=== PATIENT | female | born 1995 | race Caucasian/White ===

== ENCOUNTER → 2021-01-31 10:05 | Outpatient (CLI) | payer OTHER, SELFPAY ==
[2021-01-31 11:03] LABS: COVID19 -Nasal RAPID Negative (Negative)
== END ==
PROVIDERS: Visit Provider Physician Assistant
DX: Z20.822 Contact with and (suspected) exposure to COVID-19 (principal); Z01.812 Encounter for preprocedural laboratory examination
CPT/HCPCS: 87635

== ENCOUNTER 2021-02-02 06:13 | Day surgery (SDC) | payer OTHER, SELFPAY ==
[2021-02-02] VITALS (12 sets, daily range): BP systolic 95–129; BP diastolic 52–80; PULSE 72–98; RESP 8–21; TEMP 36.1–37.6; O2SAT 97–100; BMI 18.1
--- NOTE | 2021-02-02 | DI.RAD.S_ITS ---
PROCEDURE: XR ANKLE LT MIN 3V INDICATIONS: FLAT FOOT REPAIR TECHNIQUE: 3 views of the ankle were acquired. COMPARISON: None. FINDINGS: Bones: Intraoperative images obtained using C-arm apparatus demonstrate postsurgical changes compatible with hindfoot arthrodesis. Soft tissues: No tibiotalar joint effusion. Achilles tendon appears normal. IMPRESSION: Expected postsurgical change for hindfoot arthrodesis. Dictated by: Ariella Taylor MD, PhD on 02/02/2021 at 16:47 Approved by: Ariella Taylor MD, PhD on 02/02/2021 at 16:48
[2021-02-02] MEDS: LACTATED RINGERS 1,000 ML 42 ML IV ×2 (07:23→11:39)
--- NOTE | 2021-02-02 07:29 | PM.PREOP ---
Pre-operative Note COVID-19 COVID-19 status: Negative Interval Note History & Physical reviewed/Exam performed by Physician: Yes Changes to H&P: No
[2021-02-02] MEDS: MIDAZOLAM 2 MG/2 ML VIAL IV (07:39)
[2021-02-02] MEDS: CLINDAMYCIN 900 MG/50 ML PIGGYBACK 50 MG IV (07:48)
--- NOTE | 2021-02-02 07:51 | SUR.PREOP ---
Block start time [0739] . Monitoring initiated and maintained throughout procedure. Oxygen and medications given per anesthesiologist instructions. Patient remained stable throughout procedure, no adverse reactions noted. Block end time [0745].
--- NOTE | 2021-02-02 08:06 | PM.PROC.1 ---
Procedures Date/Time Date of procedure: 02/02/21 Time of procedure: 07:45 Nerve Block Time out performed: Yes Local anesthetic used: other (5mL 1% Lidocaine, 15mL 0.5% Ropivacaine) Location of anesthetic used: lateral popliteal Amount of anesthesia used (mL): 20 Nerve blocks: other (sciatic nerve) Procedure successful: Yes Patient tolerated procedure: well Complications: none Additional comments: LEFT Ultrasound guided lateral popliteal sciatic nerve block for post operative pain management, as discussed with surgeon. Risks, benefits discussed with patient. Consent verified. Site marked by surgeon. Time out performed. Standard ASA monitors applied, NC O2, 2mg versed. Pt supine. Chloroprep. Sciatic nerve identified proximal to popliteal fossa, at bifurcation. Lidocaine local skin wheal. 100mm x 21g Pajunk needle advanced with in-plane US guidance to nerve. Negative aspiration. 5mL 1% lidocaine and 15mL 0.5% ropivacaine injected with intermittent negative aspiration. Good LA spread noted on US. No pain, no paresthesias. VSS. Tolerated well.
[2021-02-02] MEDS: ACETAMINOPHEN IV 1,000 MG/100 ML VIAL 400 MG IV (08:13)
--- NOTE | 2021-02-02 08:25 | SUR.OPER ---
Supine on padded OR bed, head on pillow, arms secured on padded arm boards at <90 degrees abduction, bump under left hip, legs uncrossed, left leg under control of surgeon, safety belt at abdomen, tape over blanket over right lower leg.
[2021-02-02] MEDS: BUPIVACAINE 0.5% W/ EPI (PF) 30 ML VIAL INJ (08:39)
[2021-02-02] MEDS: THROMBIN (RECOMBINANT) 5,000 UNIT VIAL 5000 UNIT TOP (10:31)
[2021-02-02] MEDS: HYDROMORPHONE 2 MG INJ IV ×2 (12:42→12:52)
[2021-02-02] MEDS: OXYCODONE IR 5 MG TABLET PO (12:46)
--- NOTE | 2021-02-02 17:09 | P.OP_ITS ---
Operative Date/Time/Diagnoses Date of procedure: 02/02/21 Time of procedure: 08:00 Pre-op diagnosis: left pes planus, history of clubfoot correction, arthritis of the foot, pes planovalgus, rigid, left, Achilles tendon contracture, a hallux valgus deformity Post-op diagnosis: same Procedure & Clinicians Procedure: triple arthrodesis CPT code 61724 left calcaneus osteotomy CPT code 20369 tendo-Achilles lengthening CPT code 18593 left bone graft small iliac crest dowel CPT code 99628 peroneal tendon release CPT code 10934 Same procedure as scheduled: Yes Indications: Keri is a 25-year-old female with a history of clubfoot deformities bilaterally. She had surgical corrections of her clubfoot when she was 3-year-old involving a circumferential release type surgeries and resulted in a over correction. The patient currently has bilateral painful severe has planovalgus deformities accompanied by hallux valgus deformities with under Lapping great toes. She is on able to ambulate without pain. She has difficulty with shoe wear and walking any distance. She has been indicated for deformity correction. We discussed regarding the severity of her correction this may require staged procedures addressing the hindfoot and forefoot. We also discussed with her severe deformities and history of congenital deformities that residual deformity and stiffness is common. The risks and benefits of the procedure have been discussed with the patient even opportunity to ask questions. The risks of surgery include but are not limited to infection, under correction, over correction, malunion, nonunion, persistence of pain, damage to nerves and blood vessels, posttraumatic arthritis, DVT, PE, cardiopulmonary complications and . we discussed need for additional procedures were staged procedures and the use of autograft and allograft bone. The patient expressed a thorough understanding of the risks and benefits of surgery and has elected to proceed. Consent was signed in the office. Surgeon: Tali Calhoun Network Technical Analyst: Raul Robertson Anesthesia Type: General and Peripheral nerve block Operative Notes Findings: severe rigid pes planovalgus deformity Closure Type: primary Specimen(s): none sent Prosthetic devices, grafts, tissues, transplants, or devices: Arthrex 6.7 cannulated screws x2 Arthrex 4.5 mm cannulated screws x2 Arthrex peanut plate x1 with 1 locking and 1 cortical screw Arthrex Kennedy allograft 12 mm Estimated Blood Loss (mL): 50 Blood products transfused: none Tourniquet time (min): 130 Procedure in detail: Patient was seen in the preoperative area the site of surgery was marked informed consent confirmed. She was brought back to the operating room by the anesthesia team. A peripheral nerve block was placed for postoperative pain control by the anesthesia team. She is physically supine on the operative table all bony prominences were well padded. An SCD was placed. Well-padded thigh tourniquet was placed. The left lower extremities prepped and draped in standard sterile technique. A formal time-out procedure was performed confirming the patient's side and site of surgery administration of appropriate preoperative antibiotics all were in agreement. Implants were in the room. Attention turned to the leg the Esmarch bandage was used for exsanguination and tourniquet elevated to 250 mm of mercury. C-arm was brought in a AP x-rays ankle was obtained showed symmetric mortise and no varus or valgus tilt. The previous and medial and lateral arms of the circumferential release incisions were identified. Achilles lengthening: The patient had the Achilles contracture. A tendo- Achilles lengthening was performed through a triple [place] us to dial in tenotomy with 3 lani sections to the most distal and most proximal directed laterally and the central lani section directed medially the ankle was less stretched in dorsiflexion providing a audible stretch and release. Attention was then turned to the previous medial incision this was opened from the tip of the toes medial malleolus to the navicular in a line with the posterior tibialis tendon. This was taken down the skin subcutaneous tissues. There was copious scar tissue. The posterior tibialis tendon was released around the navicular the talonavicular joint was exposed and mobilized. The cartilage surfaces were removed using the osteotomes and sent these joint prep set. The medial facet of the subtalar joint was also entered from the medial approach. The rigid valgus hindfoot deformity was not current completely yevgeniy ectable of through this so attention was turned laterally and the previous lateral arm of the incision was opened up from the tip of the fibula towards the 4th ray there were chronically dislocated peroneal tendons that were extremely tendinotic and scarred in a contracted position. These were released exposing the sinus tarsi. The remainder of the subtalar joint and posterior facet were exposed and debrided of cartilage. The FHL was of visualized medially. Once this was completed the joint prep was completed with irrigation followed by drilling of the subchondral bone for good bleeding. Attention was turned to the Chopart joint. Decision was made to complete a lateral column lengthening osteotomy through the calcaneus to help address the continued abduction deformity. Of for some increased healing potential of versus a distraction calcaneal cuboid fusion. Calcaneal osteotomy was was completed through the lateral calcaneus about a cm and half proximal to the cc joint. The cc joint was pinned in place and the saw was used to make the osteotomy and the trials and spreaders used to distract this and a 12 mm Arthrex Kennedy wedge was placed and this was secured with a lateral plate. Triple arthrodesis. The subtalar joint was then brought out of valgus and pinned from the calcaneus into the talus improving the alignment to approximate physiologic valgus of 5? on axial imaging. Parallel wires were placed. These were evaluated in lateral and AP ankle imaging making sure the wires were appropriately placed. These were measured drilled and then countersunk and 2 of the 6.7 cannulated screws from the Arthrex set were placed achieving compression. Next attention was turned to the talonavicular joint again this was prepped in the same fashion denuding the cartilage side using the subchondral drilling and placing the mixture of allograft bone with the iliac crest aspirate and iliac crest dowel. Once the talonavicular joint was aligned this was pinned in place and then 2 of the 4.5 cannulated screws from the Arthrex set were placed and a additional dorsal medial a peanut plate for additional dorsal compression. Iliac bone graft: the iliac crest to was prepped out in the initial prep procedure using a thyroid sheet and Ioban. The iliac crest was palpated small incision was made with a scalpel the jam she had the trocar was then advanced into the bone using a mallet trocar was removed and approximately 10 cc of iliac crest aspirate was aspirated in small a 2 cc aliquots from multiple locations and additional at the dowel graft was harvested. This was mixed with the 15 cc of cancellous chips for the fusion sites. Final x-rays of implanted hardware were obtained confirming appropriate joint compression and alignment. Decision was made to address the remaining of forefoot deformity at the additional setting given the need for extensive and multiple releases and procedures due to the complex and chronic congenital deformity. At this point the wounds were irrigated the tourniquet had been released hemostasis was achieved. Deep medial deltoid was reclosed with 0 Vicryl suture. 2-0 Vicryl used in the subcutaneous tissues and 4-0 Monocryl and 4-0 nylon in the skin. The incision for the calcaneal screws was closed with 3- 0 nylon. Single nylon stitch was placed at the iliac crest harvest site. Sterile dressing with Webril Xeroform gauze bulky Nair cotton and a posterior and U splint was placed. The patient was woken from anesthesia and taken to the recovery unit in good condition. There no immediate complications from this procedure. All counts were correct. Complications: none Post-operative Condition: stable Disposition: PACU Plan for aftercare: nonweightbearing left lower extremity follow-up in 2 weeks. Will plan 2nd stage of procedure 4-6 weeks. Oxycodone for pain control. Elevate above the heart level.
== END 2021-02-02 14:25 | disposition home or self-care (01) ==
PROVIDERS: PCP Student in an Organized Health Care Education/Training Program; Referring Provider Orthopaedic Surgery Foot and Ankle Surgery; Visit Provider Orthopaedic Surgery Foot and Ankle Surgery
PROC: (CPT 27870; principal; 2021-02-02 07:45)
PROC: (CPT 27685; 2021-02-02 07:45)
PROC: 0QBP0ZZ Excision of Left Metatarsal, Open Approach (ICD-10-PCS; CPT 28292; 2021-02-02 07:45)
DX: M21.41 Flat foot [pes planus] (acquired), right foot (principal); Z87.76 Personal history of (corrected) congenital malformations of integument, limbs and musculoskeletal system; M19.072 Primary osteoarthritis, left ankle and foot; M20.11 Hallux valgus (acquired), right foot; J45.909 Unspecified asthma, uncomplicated
CPT/HCPCS: 28715; 20900; 27685; 64450; 73610; 76000; J0131; J1100; J1170; J2250; J2405; J2704; J3010

== ENCOUNTER → 2021-03-07 11:08 | Outpatient (CLI) | payer OTHER, SELFPAY ==
[2021-03-07 13:46] LABS: COVID19 -Nasal RAPID Negative (Negative)
== END ==
PROVIDERS: Family Provider Orthopaedic Surgery; PCP Student in an Organized Health Care Education/Training Program; Visit Provider Student in an Organized Health Care Education/Training Program
DX: Z20.822 Contact with and (suspected) exposure to COVID-19 (principal)
CPT/HCPCS: 87635

== ENCOUNTER 2021-03-09 05:52 | Day surgery (SDC) | payer OTHER, SELFPAY ==
[2021-03-09] VITALS (7 sets, daily range): BP systolic 96–115; BP diastolic 62–75; PULSE 68–90; RESP 10–12; TEMP 36.2–37.2; O2SAT 99–100; BMI 18.1
[2021-03-09] MEDS: LACTATED RINGERS 1,000 ML 42 ML IV (07:19)
[2021-03-09] MEDS: ACETAMINOPHEN 325 MG TABLET 975 MG PO (07:30)
--- NOTE | 2021-03-09 07:37 | P.OP_ITS ---
Operative Date/Time/Diagnoses Date of procedure: 03/09/21 Time of procedure: 08:00 Pre-op diagnosis: History of clubfoot correction, pes planus, acquired pes planovalgus and hallux valgus deformities left foot Post-op diagnosis: same Procedure & Clinicians Procedure: arthrodesis tarsometatarsal single, left CPT code 17234 bunionectomy modified Linaers, left CPT code 77651-59 This procedures performed with a modifier 58 for more extensive procedure as part of the staged correction of the severe rigid pes Underwood valgus foot with the severe hallux valgus as part of an overcorrected clubfoot deformity. During the operation, the services of a physician surgical brace maker were medically indicated and necessary to provide the exposure of the operative site for the surgical procedure and to maintain the limb in a proper position to carry out the operation safely and efficiently. Without a qualified refinery operator assistant being present this would extended the operative procedure and made the procedure technically more difficult to perform. Same procedure as scheduled: Yes Indications: The patient is a 25-year-old female with a history of a clubfoot deformities that she had surgical corrections as a child resulting in over correction rigid pes planovalgus deformities with severe hallux valgus deformities and under Lapping great toes. She has been indicated for operative treatment. This is the 2nd stage of the correction. A for staged address the hindfoot. We are addressing the forefoot today with the Lapidus procedure and distal soft tissue release to correct the hallux valgus. The risks and benefits of the procedure have been discussed with the patient even opportunity to ask questions. The risks of surgery include but are not limited to infection, malunion, nonunion, persistence of pain, damage to nerves and blood vessels, posttraumatic arthritis, DVT, PE, cardiopulmonary complications and . The patient expressed a thorough understanding of the risks and benefits of surgery and has elected to proceed. Consent was signed in the office. Surgeon: Tali Calhoun Career Placement Specialist: Jorge Alberto Reyes Anesthesia Type: General, Peripheral nerve block and Local Operative Notes Findings: Severe hallux valgus deformity with under Lapping great toe. This planovalgus deformity. Healed previous medial and lateral incisions. Rigid hindfoot. Closure Type: primary Specimen(s): none sent Applied: implant(s) ( Arthrex large left-sided plantar Lapidus plate. Locking and nonlocking screws.) Estimated Blood Loss (mL): 50 Blood products transfused: none Tourniquet time (min): 104 Procedure in detail: Patient was seen in the preoperative area the site of surgery was marked informed consent confirmed. A block was placed by the anesthesia team for postoperative pain control. She was brought back to the operating room by the anesthesia team positioned supine on operative table. All bony prominences were well padded. General anesthesia was administered. The left lower extremities prepped and draped in the standard sterile fashion. A formal time-out procedure was performed confirming the patient's side and site of surgery administration of appropriate preoperative antibiotics. All were in agreement. Implants were in the room and accounted for. Attention was turned to the left foot. There were healed incisions from the previous hindfoot arthrodesis. There is some residual valgus in place planus in related to her severe preoperative deformity. And a severe hallux valgus was noted. An Esmarch was used for exsanguination and a thigh tourniquet was raised to 250 mm of mercury. Attention was turned to the 1st TMT joint. A plantar medial incision was marked out from the level of the navicular to the midshaft of the metatarsal and the base was drawn all longer along the 1st MTP joint medially as well. A separate 1st web space dorsal incision was also drawn between the 2nd and 1st metatarsal heads for the lateral release. Lateral release and modified Linares procedures: Incision was made between the 1st and 2nd metatarsal heads the 1st webspace. Dissection was carried through the skin and subcutaneous tissues through the deep tissue until the abductor tendon was visualized. The abductor tendon was sharply dissected from the lateral sesamoid and resected from the base of the proximal phalanx. This was allowed to retract proximal in the wound was tagged with a PDS suture. The sesamoid was then freed up and the lateral capsule incised and perforated and stretched in varus. At the end of the case at this was irrigated and after I wa s happy with the correction the PDS sutures removed moved and a 2-0 Vicryl suture was used through the 1st metatarsal periosteum abductor tendon and then into the 2nd metatarsal periosteum and tied. additionally the medial and incision was extended distally along the 1st MTP joint a care was taken to protect the nerve. The medial capsule was opened and the joint was exposed. A section of the medial capsule was then excised and this was repaired in a tightening [id number] fashion again at the end of the procedure. This was repaired with 2-0 Vicryl and then closed with 4 0 Monocryl and nylon maintaining the position of the toe. First tarsometatarsal fusion and Lapidus procedure. A plantar medial incision from the navicular to the midshaft of the metatarsal was made through the skin. The abductor fascia was released from the bone and retracted plantarly. The 1st tarsometatarsal joint was identified. This was released and then planed with a TTS saw. The K-wire retractors were then used to distract the joint and the joint was prepped using the osteotomes to remove the cartilage. The TP this saw was also used to take a small plantar wedge to facilitate some correction of the pes planus. Joystick K-wire was then placed and the metatarsal was rotated and pinned to the 2nd metatarsal. The T and T joint was then cross pinned. This was checked on multiplanar fluoroscopy. Once I was happy with the alignment the plantar Lapidus plate was fit to the bone. There was some contouring under the medial cuneiform to allow this to fit nicely around the tibialis anterior tendon. This was then secured with BB tacks followed by securing the plate distally with locking screws next the 4-0 screw was placed through the oblong hole in a lag fashion once this engage the plate the transfixing wires were then removed. And finally additional screws were placed proximally to secure the plate. Once this was completed the soft tissue realignment is were tied in a final fashion and final radiographs were taken AP oblique and lateral planes confirming improved alignment of the forefoot deformity. The tourniquet was released hemostasis was achieved. A bunion style dressing was placed with Xeroform gauze and Case wrap long pieces of silk tape followed by Webril and a posterior and U splint. The patient was then awoken from anesthesia and taken to the recovery room in good condition. There no immediate complications from this procedure. Counts were correct. Complications: none Post-operative Condition: stable Disposition: PACU Plan for aftercare: Patient will be nonweightbearing on the left lower extremity she will elevate above the heart level for the 1st 2 weeks after surgery. She will remain in her postoperative splint until follow-up as scheduled in 4 weeks. At that time she will come out of the splint x-rays will be obtained with possible initiation partial weight-bearing in a boot based on x-rays. She will have tramadol as a postop medication. She will use aspirin for DVT prophylaxis.
--- NOTE | 2021-03-09 07:37 | PM.PREOP ---
Pre-operative Note COVID-19 COVID-19 status: Negative Result date/Date tested (Pos, Neg/Pending): 03/07/21 Interval Note History & Physical reviewed/Exam performed by Physician: Yes Changes to H&P: No
[2021-03-09] MEDS: CLINDAMYCIN 900 MG/50 ML PIGGYBACK 50 MG IV (07:48)
--- NOTE | 2021-03-09 07:51 | SUR.PREOP ---
Block start time [0737 ] . Monitoring initiated and maintained throughout procedure. Oxygen and medications given per anesthesiologist instructions. Patient remained stable throughout procedure, no adverse reactions noted. Block end time [0744].
--- NOTE | 2021-03-09 08:21 | SUR.OPER ---
Supine on padded OR bed, head on pillow, arms secured on padded arm boards at <90 degrees abduction, legs uncrossed,right leg secured to table with tape, left leg draped free blankets used as bump under lower left leg. safety belt at thigh..
[2021-03-09] MEDS: BUPIVACAINE 0.25% W/ EPI 30 ML VIAL INJ (08:32)
--- NOTE | 2021-03-09 10:35 | DI.RAD.S_ITS ---
PROCEDURE: XR FOOT LT MIN 3V INDICATIONS: LEFT FOOT SURGERY TECHNIQUE: 3 views of the foot were acquired. COMPARISON: None. FINDINGS: Bones: No acute fracture. Alignment: There is normal/expected osseous alignment. Other: Plate and screw arthrodesis of the 1st TMT joint. Additional subtalar and talonavicular arthrodesis noted. Hardware appears intact. 1st metatarsal osteotomy changes. IMPRESSION: Expected intraoperative appearance Dictated by: Jimbo Patrick M.D. on 03/09/2021 at 10:45 Approved by: Jimbo Patrick M.D. on 03/09/2021 at 10:47
[2021-03-09] MEDS: OXYCODONE IR 5 MG TABLET PO (10:56)
== END 2021-03-09 11:54 | disposition home or self-care (01) ==
PROVIDERS: Family Provider Orthopaedic Surgery; PCP Student in an Organized Health Care Education/Training Program; Referring Provider Orthopaedic Surgery Foot and Ankle Surgery; Visit Provider Orthopaedic Surgery Foot and Ankle Surgery
PROC: (CPT 28740; principal; 2021-03-09 07:45)
PROC: 0QBP0ZZ Excision of Left Metatarsal, Open Approach (ICD-10-PCS; CPT 28292; 2021-03-09 07:45)
DX: M21.42 Flat foot [pes planus] (acquired), left foot (principal); M20.12 Hallux valgus (acquired), left foot; M19.079 Primary osteoarthritis, unspecified ankle and foot; Z87.76 Personal history of (corrected) congenital malformations of integument, limbs and musculoskeletal system
CPT/HCPCS: 28740; 28292; 64450; 73630; 76000; 81025; J1100; J1170; J2250; J2405; J2704; J3010

== ENCOUNTER → 2022-01-09 11:05 | Outpatient (CLI) | payer OTHER, SELFPAY ==
[2022-01-09 13:18] LABS: COVID19 -Nasal RAPID Negative (Negative)
== END ==
PROVIDERS: Family Provider Orthopaedic Surgery; PCP Student in an Organized Health Care Education/Training Program; Visit Provider Family Medicine Sleep Medicine
DX: Z20.822 Contact with and (suspected) exposure to COVID-19 (principal)
CPT/HCPCS: 87635; C9803

== ENCOUNTER 2022-01-11 06:28 | Day surgery (SDC) | payer OTHER, SELFPAY ==
[2022-01-09 13:45] VITALS: BMI 17.4
[2022-01-11] VITALS (11 sets, daily range): BP systolic 80–104; BP diastolic 43–69; PULSE 67–98; RESP 12–16; TEMP 36.4–37.7; O2SAT 97–100; BMI 17.4
--- NOTE | 2022-01-11 | DI.RAD.S_ITS ---
PROCEDURE: XR FOOT RT MIN 3V INDICATIONS: RT FOOT SURGERY TECHNIQUE: 3 views of the foot were acquired. COMPARISON: [facility], , XR FOOT LT MIN 3V, 03/09/2021, 8:18. FINDINGS: Bones: Intraoperative fluoroscopic views during foot surgery was performed. IMPRESSION: Intraoperative fluoroscopic views during foot surgery were performed. Dictated by: Elieser Melendrez M.D. on 01/11/2022 at 16:13 Approved by: Elieser Melendrez M.D. on 01/11/2022 at 16:15
[2022-01-11] MEDS: LACTATED RINGERS 1,000 ML 42 ML IV ×2 (07:13→12:11)
--- NOTE | 2022-01-11 07:25 | PM.PREOP ---
Pre-operative Note COVID-19 COVID-19 status: Negative Interval Note History & Physical reviewed/Exam performed by Physician: Yes Changes to H&P: No
[2022-01-11] MEDS: CLINDAMYCIN 900 MG/50 ML PIGGYBACK 50 MG IV (07:55)
--- NOTE | 2022-01-11 08:15 | SUR.PREOP ---
Addendum entered by Trini Clifford R.N. 01/11/22 08:21: 0748 - Dr Howard at bedside to perform popliteal and saphenous nerve blocks. Oxygen at 2LNC per instruction. Medications given by Dr Howard. 0800 - 1st injection time. 0808 - Blocks complete. Pt remained stable thoughout procedure. No adverse reactions noted. See VS and EKG strips. Original Note: Block start time [] . Monitoring initiated and maintained throughout procedure. Oxygen and medications given per anesthesiologist instructions. Patient remained stable throughout procedure, no adverse reactions noted. Block end time []. 0748 - Dr Howard at bedside to perform popliteal and saphenous nerve blocks. Oxygen at 2LNC per instruction. Medications given by Dr Howard. 0800 - 1st injection time. 0808 - Blocks complete. Pt remained stable thoughout procedure. No adverse reactions noted. See VS and EKG strips.
--- NOTE | 2022-01-11 08:58 | SUR.OPER ---
Supine on padded OR bed, head on pillow, arms secured on padded arm boards at <90 degrees abduction, legs uncrossed, safety belt at waist, tape over blanket over lower left leg, right leg draped free with blankets under calf and gel bump under hip.
[2022-01-11] MEDS: BUPIVACAINE 0.25% (PF) 30 ML, EPINEPHrine 0.15 MG INJ (09:12)
[2022-01-11] MEDS: THROMBIN (RECOMBINANT) 5,000 UNIT VIAL 5000 UNIT TOP (11:07)
--- NOTE | 2022-01-11 13:31 | P.OP_ITS ---
Operative Date/Time/Diagnoses Date of procedure: 01/11/22 Time of procedure: 08:00 Pre-op diagnosis: 1. Pes planus both feet M21.41 2. History of clubfoot correction z87.76 3. Arthritis of the foot M19.079 4. Pes planovalgus deformity M21.40 5. Achilles contracture Post-op diagnosis: same Procedure & Clinicians Procedure: Right Triple arthrodesis CPT code 93800 Right Calcaneal osteotomy medialization cpt 57543-76 Right Tendo-Achilles lengthening CPT code 45012-58 Right Bone graft small iliac crest dowel and aspirate CPT code 82331-84 Right Peroneal tendon release CPT code 57089 During the operation, the services of a physician offset assistant press operator were medically indicated and necessary to provide the exposure of the operative site for the surgical procedure and to maintain the limb in a proper position to carry out the operation safely and efficiently. Without a qualified cosmetic sales assistant being present this would extended the operative procedure and made the procedure technically more difficult to perform. Same procedure as scheduled: Yes Indications: Keri is a 26-year-old female has a history of clubfoot deformities bilaylina llsera. She had surgical corrections of her clubfoot when she was 3-year-old involving circumferential release type surgeries that resulted in over correction. Patient has bilateral pes planovalgus deformities and hallux valgus deformities with under Lapping great toes. This caused her pain and difficulty with ambulation. She had staged correction of her left side and is now returning for the right side. She has noticed improvement after surgical correction on the left side. Now returns for the right. Risks and benefits of the surgery were discussed with the patient the been given the opportunity ask questions. Infection, damage to nerve or blood vessels, posttraumatic arthritis, DVT, cardiopulmonary complications, pulmonary embolism malunion nonunion were all discussed we also discussed the need for additional procedures and this would be a planned stage procedure. We discussed the use of autograft and allograft bone. Patient expressed a thorough and drape standing of the risks and benefits of surgery and has elected to proceed. Consent was signed in the office. 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 Chronically dislocated peroneal tendons. 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 Closure Type: primary Specimen(s): none sent Prosthetic devices, grafts, tissues, transplants, or devices: Arthrex 6.7 cannulated screws x 2x 60 mm Arthrex 4.5 cannulated screws 40 mm and 45 mm Five hole 3 mm low-profile straight plate with 3 locking screws and 1 nonlocking screw 12 cm allograft Kennedy wedge Estimated Blood Loss (mL): 100 Blood products transfused: none Tourniquet time (min): 130 Procedure in detail: Triple arthrodesis CPT code 23485 Calcaneal osteotomy medialization cpt 38014-08 Tendo-Achilles lengthening CPT code 39687-73 Bone graft small iliac crest dowel and aspirate CPT code 30389-19 Peroneal tendon release CPT code 88384 Patient was seen in the preoperative area the site of surgery marked informed consent confirmed. She was brought back to the operating room by the anesthesia team. Peripheral nerve block was placed by the anesthesia team for postoperative pain control. She was positioned supine on operative table all bony prominences well padded. An SCD was placed on the contralateral lower extremity. A well-padded thigh tourniquet was placed. The operative extremity was prepped and draped in the standard sterile fashion. Separate sheet was used to drape out the ipsilateral iliac crest. The operative extremity was prepped and draped in the standard sterile fashion. A formal time-out procedure was performed confirming the patient's side and site of surgery administration of appropriate preoperative antibiotics. All were in agreement. Implants were in the room at accounted for. Attention was turned to the leg in the Esmarch bandage was used for exsanguination the tourniquet elevated to 250 mmHg. The c arm was brought in and AP x-rays of the ankle obtained shows symmetric mortise no varus or valgus tilt. Achilles tendon lengthening. Patient had an Achilles contracture. A tendo- Achilles lengthening was performed through a triple Carlita style with 3 lani section tenotomies the most distal and most proximal directed laterally in the central lani section directly medially. The ankle stretched and dorsiflexion providing audible stretching release. Iliac crest bone graft harvest: Iliac crest was prepped out with thyroid sheet Niaspan. Iliac crest was palpated and a small incision was made with an incision using a scalpel and the gym she trocar was then advanced to the bone using a mallet. The trocar was removed and approximately 10 cc of iliac crest aspirate was aspirated and small 2 cc aliquots from multiple locations with additional dowel allograft harvested. This was mixed with 15 cc of cancellous chips for the fusion sites. Medialized and calcaneal osteotomy: After preparation of the subtalar joint this was aligned and provisionally pinned. There was still additional valgus or on the hindfoot alignment views and it was felt that the patient would require a separate medialized and calcaneal osteotomy to bring the heel back under the ankle. Separate incision was made laterally along the lateral calcaneus this was taken down through the skin and subcutaneous tissue to the periosteum. Periosteum was elevated. The planned osteotomy was marked out and then a osteotomy was made using the TTS saw to the medial wall this was completed using an osteotome elevation of the medial periosteum was then completed with an elev ator and the tuberosity of the calcaneus was shifted approximately 8 mm medially and pinned. This was checked on lateral and axial views this helped align the hindfoot in neutral this was pinned in place and then the subtalar joint was really reduced and pinned in place for the overall hindfoot alignment. Triple arthrodesis: Attention was turned to the previous medial incision. Open from the tip of the medial malleolus to the navicular in line with the posterior tibialis tendon. Taken down through the skin subcutaneous tissues. Scar tissue was debrided. Posterior Tibialis tendon was released. Talonavicular joint was exposed and mobilized. Which surfaces were denuded using the osteotomes and sent these joint prep set. Medial facet of the subtalar joint was also entered from the medial approach. The rigid valgus hindfoot deformity was not completely correctable through this so attention was turned laterally in the previous lateral arm of the incision was opened up from the tip of the fibula toward the 4th ray. Chronically dislocated peroneal tendons were tendon on a concern are in the contracted position. These were released exposing the sinus tarsi. Remainder of the subtalar joint posterior facet were exposed and debrided of cartilage. Then attention was turned to the calcaneal cuboid joint. This was also prepped in the standard fashion. Once this was completed the joint prep was completed with irrigation followed by drilling of the subchondral bone for good bleeding. Decision was made to complete a distraction arthrodesis of the calcaneocuboid joint to help correct the abduction deformity. Trials and spreaders were used and a 12 mm Arthrex Kennedy wedge was placed and secured with a lateral plate. Bone graft was placed at the fusion sites for the subtalar fusion. Subtalar joint was then brought out of valgus and pinned from the calcaneus to the talus improving alignment to approximate physiologic valgus of 5? on axial imaging. Parallel wires were placed. These were evaluated and lateral AP imaging to make sure they were appropriately placed. These were measured and drilled and countersunk. Two x 6.7 Arthrex cannulated screws were placed achieving compression. Next attention was turned to the talonavicular joint this was again prepped in the same fashion and allograft was placed. This was positioned and pinned in place and then secured with 2x 4.5 cannulated screws from the Arthrex set. Additional bone graft was packed into the sinus tarsi. Final x-rays of the implanted hardware were obtained confirming appropriate compression alignment of the hindfoot. As planned the remainder of the forefoot deformity will be addressed in a separate procedure as a staged reconstruction of this complex congenital foot deformity. This point wounds were irrigated tourniquet was released hemostasis was achieved. Deep medial deltoid was reclosed with 0 Vicryl suture, 2-0 Vicryl subcutaneous and 4-0 Monocryl and 4-0 nylon in the skin. Incision for the calcaneal screws was closed with 3-0 nylon. Single nylon stitch at the iliac crest harvest site. Sterile dressing through lateral Xeroform bulky Nair cotton and a posterior and U splint were placed the patient was woken from anesthesia and taken to recovery room in good condition. No immediate complications. All counts were correct. Complications: none Post-operative Condition: stable Disposition: PACU Plan for aftercare: Nonweightbearing or touchdown for balance. Elevate above the heart level for the 1st 2 weeks after surgery. Start aspirin for DVT prophylaxis on postop day 1. Pain and antinausea medicine sent to the patient's pharmacy. She is very sensitive to narcotics and tramadol work best for her. Will follow up in 2 weeks for a incision check. With plan the rest of the staged foot reconstruction in approximately 6 weeks after incisions are healed.
--- NOTE | 2022-01-11 13:48 | SUR.PREOP ---
2927-Dr Land consulted re: bp range continuesto run in low mid 80s systolic Ephedrine iv by anestheisa given, for bp 70/33. Pt with severe shivering. bp up now 91/56.. blanket warmer on.
--- NOTE | 2022-01-11 15:16 | SUR.PHASEII ---
1430 Patient denied dizziness/light-headedness. Transferred onto commode to void, non-weight baring on operative leg. Also denied nausea. Instructed to take food and medication as soon as numbness begins to wear off. Pt had surgery on the opposite leg and is very comfortable with the discharge instructions. No questions asked. IV dc'd and patient dressed herself on the commode. She became dizzy and was transferred to the bed. Discharged when stable.
== END 2022-01-11 14:53 | disposition home or self-care (01) ==
PROVIDERS: Family Provider Orthopaedic Surgery; PCP Student in an Organized Health Care Education/Training Program; Referring Provider Orthopaedic Surgery Foot and Ankle Surgery; Visit Provider Orthopaedic Surgery Foot and Ankle Surgery
PROC: (CPT 28715; principal; 2022-01-11 07:45)
PROC: (CPT 27685; 2022-01-11 07:45)
DX: M21.41 Flat foot [pes planus] (acquired), right foot (principal); Z87.76 Personal history of (corrected) congenital malformations of integument, limbs and musculoskeletal system; M67.01 Short Achilles tendon (acquired), right ankle
CPT/HCPCS: 28715; 27685; 20900; 28220; 64450; 73630; 76000; 81025; J0171; J2250; J2704; J3010

== ENCOUNTER → 2022-02-27 09:09 | Outpatient (CLI) | payer OTHER, SELFPAY ==
[2022-02-27 11:11] LABS: COVID19 -Nasal RAPID Negative (Negative)
== END ==
PROVIDERS: Family Provider Orthopaedic Surgery; PCP Student in an Organized Health Care Education/Training Program; Visit Provider Family Medicine Sleep Medicine
DX: Z20.822 Contact with and (suspected) exposure to COVID-19 (principal)
CPT/HCPCS: 87635; C9803

== ENCOUNTER 2022-02-28 05:47 | Day surgery (SDC) | payer OTHER, SELFPAY ==
[2022-02-27 12:50] VITALS: BMI 17.4
[2022-02-28] VITALS (7 sets, daily range): BP systolic 87–109; BP diastolic 53–62; PULSE 70–94; RESP 11–19; TEMP 36.5–36.6; O2SAT 98–100; BMI 17.4
--- NOTE | 2022-02-28 07:31 | PM.PREOP ---
Pre-operative Note COVID-19 COVID-19 status: Negative Interval Note History & Physical reviewed/Exam performed by Physician: Yes Changes to H&P: No
[2022-02-28] MEDS: fentaNYL 100 MCG/2 ML INJ 50 MCG IV ×2 (07:35→07:37)
[2022-02-28] MEDS: MIDAZOLAM 2 MG/2 ML VIAL IV (07:37)
[2022-02-28] MEDS: LACTATED RINGERS 1,000 ML 42 ML IV ×2 (07:37→09:01)
[2022-02-28] MEDS: CLINDAMYCIN 900 MG/50 ML PIGGYBACK 50 MG IV (08:00)
--- NOTE | 2022-02-28 08:00 | SUR.PREOP ---
Block start time 0734. Time out done. Monitoring initiated and maintained throughout procedure. Oxygen and medications given per anesthesiologist. Patient remained stable throughout procedure, no adverse reactions noted. Block end time 0746.
--- NOTE | 2022-02-28 08:14 | SUR.OPER ---
Supine on padded OR bed, head on pillow, arms secured on padded arm boards at <90 degrees abduction, legs uncrossed, safety belt at thigh, tape over blanket over lower legs. Blair bump under right leg
[2022-02-28] MEDS: BUPIVACAINE 0.25% (PF) 30 ML, EPINEPHrine 0.15 MG INJ (08:22)
--- NOTE | 2022-02-28 09:41 | DI.RAD.S_ITS ---
PROCEDURE: XR FOOT RT 2V INDICATIONS: RIGHT HAMMER TOE REPAIR TECHNIQUE: 2 views of the foot were acquired. COMPARISON: [facility] [place], CR, XR FOOT 3+ VIEWS BILATERAL, 10/31/2021, 9:43. [facility] [place], CR, XR FOOT 3+ VIEWS LEFT, 06/27/2021, 9:47. [facility], CR, XR FOOT RT MIN 3V, 01/11/2022, 11:30. FINDINGS: 2 fluoroscopy images demonstrate bunionectomy and arthrodesis at the 1st metatarsophalangeal joint. Soft tissue swelling is noted, presumably secondary to postsurgical change. IMPRESSION: Bunionectomy and arthrodesis of the 1st metatarsophalangeal joint. Dictated by: Vania Romero M.D. on 02/28/2022 at 18:52 Approved by: Vania Romero M.D. on 03/01/2022 at 9:47
--- NOTE | 2022-02-28 15:13 | P.OP_ITS ---
Operative Date/Time/Diagnoses Date of procedure: 02/28/22 Time of procedure: 08:00 Pre-op diagnosis: Acquired pes [id number] Valgus deformity great toe M20.11 History of clubfoot correction z87.76 Post-op diagnosis: same Procedure & Clinicians Procedure: First metatarsophalangeal joint fusion CPT code 71293, right This procedure was performed with a modifier 58 for a staged procedure this was part of the total right foot reconstruction and was a planned staged forefoot correction During the operation, the services of a instructor adjunct surgical technician were medically indicated and necessary to provide the exposure of the operative site for the surgical procedure and to maintain the limb in a proper position to carry out the operation safely and efficiently. Without a qualified glass ribbon machine operator assistant being present this would extended the operative procedure and made the procedure technically more difficult to perform. Same procedure as scheduled: Yes Indications: Patient is a 26-year-old female with a history of a congenital foot deformity clubfoot then corrected to a rigid flatfoot. She had a previous hindfoot correction and now presents for her staged 1st metatarsophalangeal joint fusion to correct her residual severe hallux valgus deformity. This is staged procedure. She has consented to proceed. The risks and benefits of the proce dure have been discussed with the patient even opportunity to ask questions. The risks of surgery include but are not limited to infection, malunion, nonunion, persistence of pain, damage to nerves and blood vessels, posttraumatic arthritis, DVT, PE, cardiopulmonary complications and . The patient expressed a thorough understanding of the risks and benefits of surgery and has elected to proceed. Consent was signed in the office. Surgeon: Tali Calhoun Simonizer: Max Dumont Anesthesia Type: General, Peripheral nerve block and Local Operative Notes Findings: Severe hallux valgus deformity. No active motion of the 1st ray. Closure Type: primary Specimen(s): none sent Prosthetic devices, grafts, tissues, transplants, or devices: Arthrex petite right-sided 0 degree max Force 1st MTP arthrodesis plate 30 mm 3-0 cannulated crossing screw Estimated Blood Loss (mL): 15 Blood products transfused: none Tourniquet time (min): 70 Procedure in detail: Patient was seen in the preoperative area the site of surgery marked informed consent confirmed and the site of surgery marked. She was taken to the operating room by the anesthesia team. A regional block was placed by the anesthesia team for postoperative pain control. Patient was positioned supine on operative table all bony prominences well padded. Well-padded thigh tourniquet was placed. The right lower extremity was exposed. The right lower extremities prepped and draped in the standard sterile fashion. Formal time-out was performed for confirming the patient's side site of surgery administration of appropriate preoperative antibiotics and presence of formed informed consent. This patient is penicillin allergic she received clindamycin 900. Attention turned to the right foot the Esmarch was used for exsanguination the tourniquet raised on the thigh to 250 mmHg. Longitudinal incision was made just medial to the extensor hallucis longus. This was taken down through the skin subcutaneous tissue. The EHL was retracted laterally and a capsulotomy was performed through the capsule and PHP. Flaps were created to expose the 1st MTP joint. Prominent medial eminence and dorsal osteophytes were then removed. Cartilage was intact but the procedure was for her severe deformity and lack of active motion. Next the pin was placed in the metatarsal head and the conical reamers were selected using an 18 for her small bones. This was reamed down to cancellous bone. Next the guidewire was removed and placed in the proximal phalanx and then reamed. Bone was noted to be quite soft. This was reamed down to good cancellous bone. The wires were removed. And then the wire was drilled into the surface to create drill holes under cooling. This provided excellent surfaces for the arthrodesis. Next the joint was aligned and pinned in place. Alignment was evaluated under fluoroscopic guidance in multiple planes and also with a flat plate to confirm my [place] could easily pass under the tip of the toe creating 2 mm of clearance. Next the guidewire for the 3-0 cannulated screw was placed this was overdrilled and countersunk. The cannulated screw was placed achieving lying in a by and compression. The right the 0 degree petite plate from the Arthrex set for the 1st MTP fusion was selected and fit to the bone. This was then pinned in place and then secured to the bone 1st with a the wire and then with locking screws. Then the gear mechanism of the max was plate was then gently engaged for small amount of extra compression then a nonlocking screw was placed proximally followed by locking screw distally. This achieved excellent fixation. Alignment was then checked on the AP and lateral fluoroscopy images. This noted excellent alignment. The wound was irrigated. Capsule was closed subcutaneous tissue closed with 2-0 Vicryl. Skin was closed with 4-0 Monocryl and 4-0 nylon. Tourniquet was released prior to final closure and hemostasis was achieved. Patient was placed in a well-padded posterior splint. Was awoken from in a seizure and taken to recovery room in good condition. There no immediate complications from this procedure. Complications: none Post-operative Condition: stable Disposition: PACU Plan for aftercare: Nonweightbearing. Elevate above the heart level for 2 weeks after surgery. Will bring her boot to her 1st follow-up. Start aspirin postop day 1 for DVT prophylaxis.
== END 2022-02-28 10:50 | disposition home or self-care (01) ==
PROVIDERS: Family Provider Orthopaedic Surgery; PCP Student in an Organized Health Care Education/Training Program; Referring Provider Orthopaedic Surgery; Visit Provider Orthopaedic Surgery Foot and Ankle Surgery
PROC: (CPT 28750; principal; 2022-02-28 07:45)
DX: M21.41 Flat foot [pes planus] (acquired), right foot (principal); M20.11 Hallux valgus (acquired), right foot; Z87.76 Personal history of (corrected) congenital malformations of integument, limbs and musculoskeletal system; F41.9 Anxiety disorder, unspecified; J45.20 Mild intermittent asthma, uncomplicated; Z86.16 Personal history of COVID-19
CPT/HCPCS: 28750; 64450; 73620; 76000; 81025; J0171; J1100; J2250; J2405; J2704; J3010